=== PATIENT | male | born 1990 | race Caucasian/White ===

== ENCOUNTER 2021-03-29 15:17 | Emergency (ER) | payer SELFPAY ==
[2021-03-29 15:52] VITALS: BMI 16.5
[2021-03-29 17:35] VITALS: BP 111/80; PULSE 94; TEMP 98.2
== END 2021-03-29 18:04 | disposition home or self-care (01) ==
LOC: JER 15:17
DX: T40.2X1A Poisoning by other opioids, accidental (unintentional), initial encounter (principal); T40.1X4A Poisoning by heroin, undetermined, initial encounter
CPT/HCPCS: 93005; 93010; 99283-25